=== PATIENT | male | born 1955 | race Caucasian/White ===

== ENCOUNTER 2021-12-10 15:41 | Emergency (ER) | payer OTHER, SELFPAY ==
[2021-12-10 16:08] VITALS: BP 151/77; PULSE 63; RESP 18; TEMP 36.2; O2SAT 98
--- NOTE | 2021-12-10 16:25 | ED.GENADULT ---
HPI - General Adult General Chief complaint: Wound/Laceration Stated complaint: laceration to forehead History of Present Illness HPI narrative: PATIENT IS A 66-YEAR-OLD MALE WHO PRESENTS TO THE [facility] VIA POV FOR EVALUATION OF A HEAD LACERATION THAT OCCURRED JUST PRIOR TO ARRIVAL. HE IS ACCOMPANIED BY HIS . PATIENT REPORTS HE ACCIDENTALLY HIT HIS HEAD ON HIS GARAGE DOOR CAUSING 2 MINOR LACERATIONS. HE REPORTS BLEEDING PROMPTED TODAY'S VISIT. HE IS NOT UP-TO-DATE ON HIS TETANUS. Related Data Home Medications Medication Instructions Recorded Confirmed aspirin 81 mg tablet,delayed 81 mg PO DAILY 12/10/21 12/10/21 release (Adult Low Dose Aspirin) cholecalciferol (vitamin D3) 50 50 mcg PO DAILY 12/10/21 12/10/21 mcg (2,000 unit) chewable tablet fenofibrate micronized 134 mg 134 mg DAILY 12/10/21 12/10/21 capsule meloxicam 15 mg tablet 15 mg DAILY 12/10/21 12/10/21 omega-3 fatty acids-fish oil 300 1 cap PO DAILY 12/10/21 12/10/21 mg-500 mg capsule (Fish Oil) Allergies Allergy/AdvReac Type Severity Reaction Status Date / Time sulfur [From Sulfur-8] Allergy Hives Verified 12/10/21 16:22 Review of Systems Review of Systems: DENIES UNCONTROLLED BLEEDING, FEVER, CHILLS, SWEATS, CHANGE IN APPETITE, POOR P.O. INTAKE, HEADACHE, DIZZINESS, LYMPHADENOPATHY, VISION CHANGES, SWELLING, ERYTHEMA, WEAKNESS, SYNCOPE, VERTIGO, LOC, SEIZURE ACTIVITY, MEMORY LOSS, DIFFICULTY WITH COORDINATION/GAIT/EQUILIBRIUM, PARESTHESIAS, NAUSEA, VOMITING, SHORTNESS OF BREATH, COUGH, CHEST PAIN, AND HEART PALPITATIONS/MURMURS. Exam Narrative: GENERAL: Well-appearing, well-nourished, and in no acute distress. HEAD: Normocephalic. No facial swelling appreciated. EYES: PERRLA and EOMI. No evidence of erythema, swelling, or drainage. ENT: Nares clear, no rhinorrhea or epistaxis.Mucous membranes moist and pink. Uvula is midline without erythema and swelling. No evidence of obstruction, petechial rash, cobblestoning, lesions, ulcers, erythema, swelling, exudates, peritonsillar abscess, tenting, or drooling. Breath odor and voice normal. NECK: Supple. No Lymphadenopathy or nuchal rigidity appreciated. CHEST: Bilateral lung henry are clear to auscultation. No respiratory distress. No evidence of cough or pleuritic cp upon examination. HEART: Regular rate and rhythm. No murmur, gallop, or rub heard. EXTREMITIES: Normal range of motion. No edema. SKIN: Warm, dry. 1/2 cm laceration noted to mid forehead. 0.5 cm abrasion noted to right forehead. Laceration is simple, clean, and irregular. NEURO: No focal deficits. Alert and oriented x3. SPECIAL OBSERVATIONS: Smiling. Laughing. No evidence of discomfort. Course Course Level of Care: Express Care Visit Procedures Laceration Laceration 1: Date: 12/10/21 Time: 16:35 Site: other ( mid-forehead) Size (cm): 1.5 Description: irregular and clean Depth: simple, single layer ====== Skin Level ====== Skin layer closed with: steri strips ( 3 Steri-Strips) ====== Subcutaneous Layer ====== ====== Muscle Layer ====== ====== Tendon Layer ====== Medical Decision Making Differential Diagnosis Differential Diagnosis: laceration, abrasion, avulsion Medical Records Medical records reviewed: Yes I reviewed the external patient's medical records. Critical Care Time Critical Care Time Critical Care Time: No Discharge Plan Discharge Clinical Impression: Laceration of forehead Patient Disposition: Home, Self-Care Condition: Stable Instructions: Laceration (ED), Steristrips (ED) Additional Instructions: See discharge instructions for detailed information A laceration is an injury to the skin and the soft tissue underneath it. Lacerations can happen anywhere on the body. Call your doctor if: You have a fever or chills. Your laceration is red, warm, or swollen. You have red streaks on your
[2021-12-10] MEDS: TETANUS,DIPHTHERIA,AC PERTUSSIS ADULT (0.5 ML) BOOSTRIX IM (16:36)
== END 2021-12-10 16:54 | disposition home or self-care (01) ==
PROVIDERS: Emergency Provider Nurse Practitioner Family; PCP Physician Assistant
DX: S01.81XA Laceration without foreign body of other part of head, initial encounter (principal); W22.8XXA Striking against or struck by other objects, initial encounter; Z23 Encounter for immunization; Z79.82 Long term (current) use of aspirin
CPT/HCPCS: 90471; 90715; 99202; G0463